=== PATIENT | female | born 1990 | race Caucasian/White ===

== ENCOUNTER 2022-07-25 14:59 | Emergency (ER) | payer OTHER, SELFPAY ==
[2022-07-25] MEDS ORDERED: Pantoprazole 40 MG VIAL ONE (15:47)
[2022-07-25] MEDS ORDERED: Ondansetron PF 4 MG/2 ML Vial ONE (15:47)
[2022-07-25] MEDS ORDERED: Sodium Chloride 0.9% 1,000 ML ONE (15:47)
[2022-07-25 16:02] LABS: #Basophils 0.1 thou/uL (0.0-0.2); #Eosinphils 0.2 thou/uL (0.0-0.7); #Lymphocytes 1.8 thou/uL (1.20-3.40); #Monocytes 0.7 thou/uL (0.11-0.59); #Neutrophils 11.3 thou/uL (1.40-6.50); %Basophils 0.4 % (0.0-1.0); %Eosinophils 1.4 % (0.0-10.0); %Lymphocytes 12.9 % (21.0-51.0); %Monocytes 4.6 % (0.0-10.0); %Neutrophils 80.7 % (42.0-75.0); Mean Corpuscular HGB CONC 31.1 g/dL (32.0-36.0); Mean Corpuscular Hemoglobin 27.2 pg (27.0-31.0); Mean Corpuscular Volume 87.6 fl (78.0-98.0); Mean Platelet Volume 11.4 fL (7.4-10.4); Platelet Count 306 10x3/uL (130-400); RBC Distribution Width 13.1 % (11.5-14.5); Red Blood Cell (RBC) Count 5.87 mill/uL (4.20-5.40); White Blood Cell (WBC) Count 14.1 10x3/uL (4.8-10.8)
[2022-07-25 16:22] LABS: ALT (SGPT) 39 U/L (8-55); AST (SGOT) 33 U/L (5-34); Alkaline Phosphatase 103 U/L (40-110); Anion Gap 18 mmol/L (10-20); BUN (Urea Nitrogen) 16 mg/dL (7.0-18.7); Bilirubin, Total 0.4 mg/dL (0.2-1.2); Calc. Creatinine Clearance 0 mL/min (70-130); Calcium 9.1 mg/dL (7.8-10.44); Carbon Dioxide 20 mmol/L (22-29); Chloride 106 mmol/L (98-107); Estimated GFR 92; Globulin 3.5 g/dL (2.4-3.5); Glucose 181 mg/dL (70-105); Lipase 104 U/L (8-78); Potassium 3.7 mmol/L (3.5-5.1); Protein, Total 7.5 g/dL (6.0-8.3); Sodium 140 mmol/L (136-145)
[2022-07-25 18:14] LABS: Bilirubin Small (Negative); Blood, Urine Large (Negative); Glucose, Urine (Dipstick) Negative (Negative); Ketone, Urine Negative (Negative); Leukocyte Negative (Negative); Nitrite Negative (Negative); Protein, Urine (Dipstick) 100 mg/dL (Neg-Trace); Urobilinogen 0.2 mg/dL (Less than 2); pH, Urine 5.5 (5.0-9.0)
[2022-07-25 18:15] LABS: Clarity Hazy (Clear); Specific Gravity, Urine 1.036 (1.002-1.036)
[2022-07-25 18:16] LABS: Pregnancy Test - Urine (BHCG) Negative (Negative); Pregu Control Background? CLEAR/WHITE (CLR/WHITE); Pregu Control Bar Appear? YES (CONTROL BAR); Specific Gravity 1.036 (1.002-1.036)
[2022-07-25 18:18] LABS: Bacteria/HPF Rare-Few HPF (None Seen); WBC/HPF 0-3 HPF (0-3)
== END 2022-07-25 18:45 | disposition home or self-care (01) ==
LOC: NAV ERS 14:59
DX: K52.9 Noninfective gastroenteritis and colitis, unspecified (principal); D72.829 Elevated white blood cell count, unspecified; K21.9 Gastro-esophageal reflux disease without esophagitis
CPT/HCPCS: 80053; 81003; 81015; 81025; 83690; 85025; 96361; 96374; 96375; C9113; J2405; J7050